=== PATIENT | female | born 1960 | race African-American/Black ===

== ENCOUNTER 2016-04-26 12:03 | Emergency (ER) | payer OTHER ==
[~2016-04-26] VITALS: Ht 167.6 cm; Wt 61.5 kg
[2016-04-26 12:05] VITALS: BP 160/90; PULSE 61; RESP 12; TEMP 97.8; O2SAT 99
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
[2016-04-26] MEDS ORDERED: IBUPROFEN 800 MG TAB PO ONE (13:00)
[2016-04-26] MEDS ORDERED: CYCLOBENZAPRINE HCL 10 MG TAB PO ONE (13:00)
== END 2016-04-26 13:39 | disposition home or self-care (01) ==
LOC: NEPB 12:03
DX: M62.838 Other muscle spasm (principal)
CPT/HCPCS: 99283